=== PATIENT | female | born 1930 | race Caucasian/White ===

== ENCOUNTER 2017-02-25 15:05 | Inpatient (IN) | payer MEDICARE ==
[~2017-02-25] VITALS: Ht 160 cm; Wt 45.5 kg
[~2017-02-25 15:05] MED LIST: ACET-1757 PO; CIPR500T87 PO; NYST15CR2 TP; RISP0.5T24 PO
[2017-02-25] MEDS ORDERED: SODIUM CHLORIDE 0.9% 1,000 ML IV ONE (16:16)
[2017-02-25] MEDS ORDERED: SODIUM CHLORIDE FLUSH 10ML SYR IVF ONE (16:30)
[2017-02-25 17:01] LABS: HEMATOCRIT 46.3 % (34.6-47.8); HEMOGLOBIN 15.1 g/dL (11.7-16.4); WHITE BLOOD COUNT 13.2 x10^3/uL (3.4-10)
[2017-02-25 17:10] LABS: BLOOD UREA NITROGEN 34 mg/dL (7-18)
[2017-02-25 17:21] LABS: ASPARTATE AMINO TRANSFERASE 15 U/L (15-37)
[2017-02-25] MEDS ORDERED: D5%-0.45NACL+KCL 40MEQ 1,000 ML IV SCH (18:00)
[2017-02-25] MEDS ORDERED: AMPICILLIN/SULBACTAM 3 GM in SODIUM CHLORIDE 0.9% 100 ML IV ONE (18:30)
[2017-02-25] MEDS: D5%-0.45NACL+KCL 20MEQ 1,000 ML IV SCH (19:00)
[2017-02-25] MEDS ORDERED: hydrALAzine 20 MG/ML, 1ML IVPush PRN (19:00)
[2017-02-25] MEDS ORDERED: BISACODYL 10 MG SUPP PR PRN (19:00)
[2017-02-25] MEDS ORDERED: ONDANSETRON 2MG/ML, 2ML IVPush PRN (19:00)
[2017-02-25] MEDS ORDERED: ACETAMINOPHEN 325 MG TABLET PO PRN (19:00)
[2017-02-25 21:27] VITALS: BP 161/93
[2017-02-25] MEDS ORDERED: ENAL5TAB PO (22:51)
[2017-02-25] MEDS ORDERED: CLON0.5T20 PO (22:52)
[2017-02-25] MEDS ORDERED: TRAZ50TA18 PO (22:52)
[2017-02-25] MEDS: CEFTRIAXONE PMX 1GM/50ML 50 ML IV SCH (23:22)
[2017-02-26 01:43] VITALS: BP 156/84
[2017-02-26] MEDS: D5%-0.45NACL+KCL 20MEQ 1,000 ML IV SCH (04:00)
[2017-02-26 05:47] LABS: HEMATOCRIT 38.9 % (34.6-47.8); HEMOGLOBIN 12.8 g/dL (11.7-16.4); WHITE BLOOD COUNT 9.4 x10^3/uL (3.4-10)
[2017-02-26 06:03] LABS: BLOOD UREA NITROGEN 27 mg/dL (7-18)
[2017-02-26 06:04] LABS: ASPARTATE AMINO TRANSFERASE 11 U/L (15-37)
[2017-02-26 07:33] VITALS: BP 132/87
[2017-02-26] MEDS: DEXTROSE 5% 1,000 ML IV SCH (09:26)
[2017-02-26] MEDS ORDERED: LORazepam 2 MG/ML, 1ML IVPush PRN (12:00)
[2017-02-26] MEDS: THIAMINE 100 MG in SODIUM CHLORIDE 0.9% 50 ML IV SCH (12:21)
[2017-02-26 12:34] LABS: DAU SCREEN DISCLAIMER
[2017-02-26 12:45] VITALS: BP 115/67
[2017-02-26] MEDS ORDERED: POTASSIUM PHOSPHATE 44 MEQ in SODIUM CHLORIDE 0.9% 500 ML IV ONE (16:30)
[2017-02-26] MEDS: CYANOCOBALAMIN 1,000 MCG/ML, 1ML IM SCH (16:53)
[2017-02-26 19:38] VITALS: BP 144/67
[2017-02-26] MEDS: CEFTRIAXONE PMX 1GM/50ML 50 ML IV SCH (23:39)
[2017-02-27 02:30] VITALS: BP 156/74
[2017-02-27 05:55] LABS: BLOOD UREA NITROGEN 16 mg/dL (7-18)
[2017-02-27 07:04] VITALS: BP 153/87
[2017-02-27] MEDS ORDERED: VANCOMYCIN PER PHARMACY MC PRN (09:00)
[2017-02-27] MEDS ORDERED: PHARMACOKINETIC MONITORING MC PRN (09:30)
[2017-02-27] MEDS ORDERED: VANCOMYCIN 800 MG in SODIUM CHLORIDE 0.9% 100 ML IV SCH (10:00)
[2017-02-27] MEDS: CYANOCOBALAMIN 1,000 MCG/ML, 1ML IM SCH (10:15)
[2017-02-27] MEDS: DEXTROSE 5% 1,000 ML IV SCH ×2 (10:16→23:14)
[2017-02-27 13:27] VITALS: BP 158/84
[2017-02-27] MEDS ORDERED: LIDOCAINE GEL 2%, 5ML ONE (14:26)
[2017-02-27] MEDS ORDERED: BENZOCAINE 20% SPRAY 0.5ML ONE (14:27)
[2017-02-27] MEDS ORDERED: OMNIPAQUE 350 MG/ML, 50 ML BOTTLE ONE (16:46)
[2017-02-27] MEDS: THIAMINE 100 MG in SODIUM CHLORIDE 0.9% 50 ML IV SCH (17:04)
[2017-02-27 18:59] VITALS: BP 191/82
[2017-02-27 20:30] VITALS: BP 122/77
[2017-02-27] MEDS: CEFTRIAXONE PMX 1GM/50ML 50 ML IV SCH (23:14)
[2017-02-28 01:35] VITALS: BP 122/67
[2017-02-28 05:38] LABS: HEMATOCRIT 39.7 % (34.6-47.8); HEMOGLOBIN 13.1 g/dL (11.7-16.4); WHITE BLOOD COUNT 8.2 x10^3/uL (3.4-10)
[2017-02-28 05:57] LABS: BLOOD UREA NITROGEN 9 mg/dL (7-18)
[2017-02-28 07:06] VITALS: BP 146/80
[2017-02-28] MEDS ORDERED: D5%-0.45NACL+KCL 40MEQ 1,000 ML IV SCH (08:47)
[2017-02-28] MEDS ORDERED: VANCOMYCIN 900 MG in SODIUM CHLORIDE 0.9% 250 ML IV SCH (09:00)
[2017-02-28] MEDS: CYANOCOBALAMIN 1,000 MCG/ML, 1ML IM SCH (11:10)
[2017-02-28 13:56] VITALS: BP 184/96
== END 2017-02-28 15:21 | disposition hospice, home (50) | DRG 689 ==
LOC: ED 17:03 → EDIP 18:52 → 3NE 21:18
PROVIDERS: ADMIT Hospitalist; ATTEND Hospitalist
PROC: 0T9B70Z Drainage of Bladder with Drainage Device, Via Natural or Artificial Opening (ICD-10-PCS; principal; 2017-02-25)
DX: N39.0 Urinary tract infection, site not specified (principal); G93.41 Metabolic encephalopathy; E43 Unspecified severe protein-calorie malnutrition; L89.150 Pressure ulcer of sacral region, unstageable; L89.100 Pressure ulcer of unspecified part of back, unstageable; I67.1 Cerebral aneurysm, nonruptured; E87.0 Hyperosmolality and hypernatremia; Z68.1 Body mass index [BMI] 19.9 or less, adult; E86.0 Dehydration; F03.90 Unspecified dementia, unspecified severity, without behavioral disturbance, psychotic disturbance, mood disturbance, and anxiety; E53.8 Deficiency of other specified B group vitamins; R53.81 Other malaise; E83.39 Other disorders of phosphorus metabolism; E87.6 Hypokalemia; F60.9 Personality disorder, unspecified; I10 Essential (primary) hypertension; Z51.5 Encounter for palliative care; Z66 Do not resuscitate; I25.2 Old myocardial infarction; Z86.73 Personal history of transient ischemic attack (TIA), and cerebral infarction without residual deficits
CPT/HCPCS: 36415; 70450; 71010; 74340; 80048; 80053; 80202; 80307; 81001; 82140; 82607; 83605; 83735; 84100; 84295; 84443; 85025; 85610; 87040; 87077; 87086; 93005; 93306; 96361; 96365; J0295; J0696; J3370; J3411; J7070; Q9967; 92523-GN; G0479; J0360; J3420; J3480; J7030; J7040; J7050